=== PATIENT | male | born 1955 | race Caucasian/White ===

== ENCOUNTER → 2021-03-11 | Day surgery (SDC) | payer OTHER ==
[~2021-03-11] VITALS: Ht 177.8 cm; Wt 74.9 kg
[~2021-03-11] MED LIST: SYNTHROID88 MCG PO
== END | disposition home or self-care (01) ==
LOC: FAS 09:33
DX: Z12.11 Encounter for screening for malignant neoplasm of colon (principal); D12.3 Benign neoplasm of transverse colon; D12.5 Benign neoplasm of sigmoid colon; K57.30 Diverticulosis of large intestine without perforation or abscess without bleeding; Z80.0 Family history of malignant neoplasm of digestive organs; Z87.891 Personal history of nicotine dependence; E03.9 Hypothyroidism, unspecified
CPT/HCPCS: J2250; J2704; J7120